=== PATIENT | male | born 1980 | race Caucasian/White ===

== ENCOUNTER → 2022-12-31 14:20 | Outpatient (CLI) | payer OTHER, SELFPAY ==
--- NOTE | 2022-12-31 14:24 | XR_ITS ---
FINAL REPORT CLINICAL HISTORY: POSITIVE TB SKIN TEST REACTOR FINDINGS: Two views of the chest were obtained. The heart size and pulmonary vascularity are within normal limits. The mediastinum is normal. No acute pulmonary abnormality is identified. There is no evidence of active mycobacterial/fungal disease. There is no pneumothorax. The bony thorax is intact. IMPRESSION: No evidence of active mycobacterial/fungal disease. Reviewed, Interpreted and Dictated by Phillip Farris III, MD Transcribed by Mali Mac Authenticated and [facility]
== END ==
PROVIDERS: Visit Provider Nurse Practitioner
DX: R76.11 Nonspecific reaction to tuberculin skin test without active tuberculosis (principal)
CPT/HCPCS: 71046